=== PATIENT | male | born 1960 | race Caucasian/White ===

== ENCOUNTER 2020-07-07 10:48 | Emergency (ER) | payer BC ==
[~2020-07-07] VITALS: Ht 177.8 cm; Wt 127.0 kg
[~2020-07-07 10:48] MED LIST: ANTIVERT12.5 MG PO; CYCLOBENZAPRINE5 MG PO; HYDROCHLOROTH12.5 MG PO; HYDROCORTISONE10 MG PO; LEVOTHYROXINE50 MCG PO; METFORMIN HCL1000 MG PO; NORCO 10-325 T1 EACH PO; NORCO 5-325 TA1 EACH PO; SIMVASTATIN20 MG PO; TESTOSTERO200 MG/1 M IM; VITAMIN D250000 UNIT PO
[2020-07-07] MEDS ORDERED: VITAMIN D250 MC1 PO (10:55)
--- NOTE | 2020-07-07 19:49 | EKG ---
[facility] [address] [facility] [place] [address] Signed Normal sinus rhythm Left bundle branch block Abnormal ECG When compared with ECG of 03-JUN-2016 06:59, Left bundle branch block is now present Confirmed by VIDAL NG MD ([id number]) on 07/07/2020 7:48:47 PM Electronically Signed By: VIDAL NG MD 07/07/20 194 PATIENT NAME: HAILEY PRITCHARD Electrocardiogram DATE OF : 56 PHYSICIAN: VIDAL NG MD REPORT #: [id number] REPORT IS CONFIDENTIAL AND NOT TO BE RELEASED WITHOUT AUTHORIZATION
== END 2020-07-07 13:53 | disposition home or self-care (01) ==
LOC: ED 10:48
DX: R07.89 Other chest pain (principal); E11.9 Type 2 diabetes mellitus without complications; E03.9 Hypothyroidism, unspecified; I10 Essential (primary) hypertension; E78.5 Hyperlipidemia, unspecified; Z79.899 Other long term (current) drug therapy; Z79.84 Long term (current) use of oral hypoglycemic drugs
CPT/HCPCS: 71045; 80053; 83690; 83735; 84484; 85025; 93005; 93010; 99285-25

== ENCOUNTER 2021-08-12 09:07 | Emergency (ER) | payer OTHER, BC ==
[~2021-08-12] VITALS: Ht 177.8 cm; Wt 133.0 kg
[~2021-08-12 09:07] MED LIST changes: +VITAMIN D250 MC1 PO
--- OUTSIDE RECORDS SUMMARY | 2021-08-12 09:16 | XMS ---
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 Jayme has no Care Guidelines for this patient. Janice VISIT COUNT (12 MO.) 1 YEN Buck TOTAL 1 NOTE: Visits indicate total known visits. ED/C VISIT TRACKING (12 MO.) 08/12/2021 09:08 YEN Pedraza OR TYPE: Emergency COMPLAINT: - R MIDDLE FINGER INJURY INPATIENT VISIT TRACKING (12 MO.) No inpatient visits to display in this time frame [email or web address]
== END 2021-08-12 10:20 | disposition home or self-care (01) ==
LOC: ED 09:07
DX: S67.192A Crushing injury of right middle finger, initial encounter (principal); W22.8XXA Striking against or struck by other objects, initial encounter; E11.9 Type 2 diabetes mellitus without complications; E03.9 Hypothyroidism, unspecified; Z79.899 Other long term (current) drug therapy; Z79.84 Long term (current) use of oral hypoglycemic drugs
CPT/HCPCS: 73140; 99283-25

== ENCOUNTER 2023-03-31 08:02 | Emergency (ER) | payer BC ==
[~2023-03-31] VITALS: Ht 177.8 cm; Wt 131.5 kg
[2023-03-31] MEDS ORDERED: LISINOPRIL20 MG PO (10:19)
[2023-03-31] MEDS ORDERED: METFORMIN HCL500 MG PO (10:19)
[2023-03-31] MEDS ORDERED: ONDANSETRON ODT8 MG PO (10:20)
[2023-03-31] MEDS ORDERED: MECLIZINE HCL25 MG PO (10:20)
[2023-03-31 10:35] VITALS: BP 188/74
--- NOTE | 2023-03-31 14:28 | EKG ---
[facility] [address] [facility] [place] [address] Signed Sinus bradycardia with sinus arrhythmia Nonspecific T wave abnormality Abnormal ECG When compared with ECG of 07-JUL-2020 11:49, Vent. rate has decreased BY 37 BPM Left bundle branch block is no longer present Confirmed by PEARL POLANCO MD ([id number]) on 03/31/2023 2:28:03 PM Electronically Signed By: PEARL POLANCO 03/31/23 1428 PATIENT NAME: HAILEY PRITCHARD Electrocardiogram DATE OF : 56 PHYSICIAN: PEARL POLANCO REPORT #: [id number] REPORT IS CONFIDENTIAL AND NOT TO BE RELEASED WITHOUT AUTHORIZATION
== END 2023-03-31 10:52 | disposition home or self-care (01) ==
LOC: ED 08:02
DX: H81.399 Other peripheral vertigo, unspecified ear (principal); E11.65 Type 2 diabetes mellitus with hyperglycemia; I10 Essential (primary) hypertension; E03.9 Hypothyroidism, unspecified; Z79.899 Other long term (current) drug therapy; Z79.84 Long term (current) use of oral hypoglycemic drugs
CPT/HCPCS: 36415; 70450; 80053; 81001; 84484; 85025; 93005; 93010; 96361; 96374; 96375; 99284 25; J1200; J2405; J7030

== ENCOUNTER 2024-01-05 14:39 | Emergency (ER) | payer BC, MEDICARE ==
[~2024-01-05] VITALS: Ht 177.8 cm; Wt 128.3 kg
[~2024-01-05 14:39] MED LIST changes: +LISINOPRIL20 MG PO; +MECLIZINE HCL25 MG PO; +METFORMIN HCL500 MG PO; +ONDANSETRON ODT8 MG PO
[2024-01-05] MEDS ORDERED: ROSUVASTATIN CA40 MG PO (15:05)
[2024-01-05] MEDS ORDERED: OMEPRAZOLE20 MG PO (15:06)
[2024-01-05] MEDS ORDERED: PIOGLITAZONE HC15 MG PO (15:06)
[2024-01-05] MEDS ORDERED: BENZONATATE 100 MG CAP PO ONE (15:45)
[2024-01-05 15:55] LABS: INFLUENZA B NAA NEGATIVE (NEGATIVE); RESPIRATORY SYNCYTIAL VIR NAA NEGATIVE (NEGATIVE)
[2024-01-05 16:38] LABS: BASOPHILS 0.4 % (0-2); EOSINOPHILS 2.8 % (0-6); HEMATOCRIT 32.1 % (35.0-50.0); HEMOGLOBIN 10.7 g/dL (12.0-18.0); MCH 28.8 (27-36); MCHC 33.2 g/dl (30-36); MCV 86.6 fl (81-99); MONOCYTES 6.8 % (0-12); PLATELET COUNT 268 K/uL (140-440); RBC 3.71 M/ul (4.3-5.7); RDW 13.9 (10.5-15.0)
[2024-01-05 16:59] LABS: ALBUMIN 3.5 g/dL (3.4-5.0); ALBUMIN/GLOBULIN RATIO 0.85 (1.1-2.4); BILIRUBIN, TOTAL 0.3 ng/dL (0.2-1.0); BUN/CREATININE RATIO 17.96 (6.0-28.6); CALCIUM 8.5 mg/dL (8.5-10.1); CREATININE, SERUM 1.28 mg/dL (0.70-1.30); PROTEIN, TOTAL 7.6 g/dL (6.4-8.2)
[2024-01-05] MEDS ORDERED: BENZONATATE100 MG PO (17:49)
[2024-01-05 17:59] VITALS: BP 168/81
== END 2024-01-05 18:00 | disposition home or self-care (01) ==
LOC: ED 14:39
PROVIDERS: Emergency Medicine
DX: J06.9 Acute upper respiratory infection, unspecified (principal); E11.9 Type 2 diabetes mellitus without complications; E03.9 Hypothyroidism, unspecified; I10 Essential (primary) hypertension; E78.5 Hyperlipidemia, unspecified; Z79.84 Long term (current) use of oral hypoglycemic drugs; Z79.890 Hormone replacement therapy; Z79.899 Other long term (current) drug therapy
CPT/HCPCS: 36415; 71045; 80053; 83880; 85025; 87502; U0002

== ENCOUNTER 2024-11-08 09:47 | Day surgery (SDC) | payer BC, MEDICARE ==
[2024-11-01 15:36] VITALS: BP 123/70
[~2024-11-08] VITALS: Ht 177.8 cm; Wt 122.7 kg
[~2024-11-08 09:47] MED LIST changes: +BAYER CHEWABLE81 MG PO; +BENZONATATE100 MG PO; +CEFAZOLIN SODIUM 3 GM/30 ML SYR IV SCH; +IBLOOD GLUCOSE TEST STRIP 1 EA TEST VI PRN; +JARDIANCE10 MG PO; +LACTATED RINGER'S 1,000 ML IV SCH; +LIDOCAINE HCL 1% 5 ML SDV INJ ONE; +MIDAZOLAM HCL 5 MG/5 ML VIAL IV PRN; +OMEPRAZOLE20 MG PO; +PIOGLITAZONE HC15 MG PO; +ROSUVASTATIN CA40 MG PO; +fentaNYL citrate 100 MCG/2 ML VIAL IV PRN; +methylPREDNISolone SOD SUCC 125 MG/2 ML VIAL IV SCH
[2024-11-08 10:03] VITALS: BP 136/72
[2024-11-08] MEDS ORDERED: METOPROLOL SUCC25 MG PO (10:06)
[2024-11-08] MEDS ORDERED: LIDOCAINE HCL 2% 5 ML SDV ONE (11:11)
[2024-11-08] MEDS ORDERED: propofoL 200 MG/20 ML VIAL ONE ×2 (11:11→11:47)
[2024-11-08 12:20] VITALS: BP 139/84
--- NOTE | 2024-11-08 12:28 | NUR ---
11/08/24 1228 Priscilla Ervin 1159 PT ARRIVED IN PACU NON RESPONSIVE TO NOXIOUS STIMULI WITH OPA IN PLACE. LAYING ON L SIDE. ABD SOFT. 1208 PT REACTIVE. OPA REMOVED. PASSING FLATUS. 1220 SITTING UP IN BED ASKING TO GO HOME.
--- NOTE | 2024-11-08 13:17 | OR ---
[facility] [address] [place], [place] [address] Signed DATE OF OPERATION: 11/08/2024 SURGEON: John Gibson MD PREOPERATIVE DIAGNOSES: 1. Anemia. 2. Nausea, vomiting, diarrhea. POSTOPERATIVE DIAGNOSES: 1. Small hiatal hernia. 2. A 5 mm polyp at distal transverse colon. PROCEDURES: 1. Esophagogastroduodenoscopy with CLOtest and biopsies of the duodenum, pyloric bulb, and antrum. 2. Colonoscopy with hot biopsy. ESTIMATED BLOOD LOSS: None. INDICATIONS: Jasmeet is a 64-year-old gentleman, asked to see me for both upper and lower endoscopy. I have known Jasmeet in the remote past. He was found to be slightly anemic. Most recently, the hemoglobin is 11.7 and a mean cell volume is 87. He said he has intermittent intervals of nausea, vomiting, and diarrhea. He is known to have an Empty Sella Syndrome for many years. I helped to remove his gallbladder back in 2013. He went over to [facility] to have his cardiac ablation, and then later his pacemaker/defibrillator placed. He tells me there is no family history of colon cancer or polyps. No family history of inflammatory bowel disease. No one else in the family seems to be sick. In the office, I gave him pamphlets on both upper and lower endoscopy. He recalls the nature of the two tests. There is risk including, but not limited to gas bloating, crampy abdominal pain, bleeding, perforation requiring surgery, and missed diagnosis. We also reviewed the written instructions for the bowel prep line by line. It is the same bowel prep he took before. He also recalls the need for monitored anesthesia care given his Empty Sella syndrome along with his very full round face, heavy neck, chest and abdomen. He had expressed understanding and wished to proceed. He understands an adult person has to take him home afterwards. DESCRIPTION OF PROCEDURE: Jasmeet was taken into our endoscopy suite and placed in the supine semi-recumbent Electronically Signed By: JOHN GIBSON MD 11/08/24 1317 PATIENT NAME: JASMEET PRITCHARD OPERATIVE REPORT DATE OF : 56 REPORT #: [id number] PHYSICIAN: JOHN GIBSON MD PCP: ABBIE SOTO PAC REPORT IS CONFIDENTIAL AND NOT TO BE RELEASED WITHOUT AUTHORIZATION [facility] [address] [place], [place] [address] Signed position. A bite block was utilized for the case. The adult gastroscope was introduced and advanced under direct visualization of the camera. He was given monitored anesthesia care, propofol infusion per our nurse asbestos removal worker. The duodenum and pyloric channel were unremarkable. Because the history of diarrhea, we went ahead and took a biopsy of the duodenum as well as pyloric channel. His entire stomach was unremarkable. We went ahead and took a biopsy of the antrum for pathologic review as well as CLOtest, there were no ulcerations. Upon retroflexion of scope, he appears to have just a very small hiatal hernia. The scope was withdrawn up through the area of the GE junction, which was compliant without stricture. There was no gastric or esophageal varices. He has essentially no disruption to his Z-line. There was no Smith mucosa. There was no distal esophagitis. The middle and upper esophagus were unremarkable. After this, the gas was suctioned out, the gastroscope removed. Jasmeet tolerated the upper endoscopy quite well. Jasmeet was then rotated into the left lateral decubitus position. He was maintained on propofol infusion per nurse asbestos removal worker. A digital rectal exam was performed. This was unremarkable. No external hemorrhoids. Good sphincter tone. No masses. The adult colonoscope was introduced and advanced all around into the cecum under direct visualization of the camera. It took just a little abdominal compression to get the scope into the cecum itself. His prep was quite good. We could easily see the appendiceal orifice and ileocecal valve. Back in the distal transverse colon, he had a 5 mm polyp easily removed with the help of hot biopsy forceps. There was no diverticulosis. The rectum was unremarkable. Upon retroflexion of scope, there was no additional pathology noted above the anal canal. After this, the gas was suctioned out. Colonoscope removed. Jasmeet tolerated the lower endoscopy quite well. RECOMMENDATIONS: I will see Jasmeet back in my office in 7 to 14 days to review his results. John Gibson MD ALB/MODL /[id number] cc: John Gibson MD Electronically Signed By: JOHN GIBSON MD 11/08/24 1317 PATIENT NAME: JASMEET PRITCHARD OPERATIVE REPORT DATE OF : 56 REPORT #: [id number] PHYSICIAN: JOHN GIBSON MD PCP: ABBIE SOTO PAC REPORT IS CONFIDENTIAL AND NOT TO BE RELEASED WITHOUT AUTHORIZATION [address] [address], [place] [address] Nguyễn Soto PA-C Patient Chart Copies: JOHN GIBSON MD, ERIKA PAC ~ Electronically Signed By: JOHN GIBSON MD 11/08/24 1317 PATIENT NAME: JASMEET PRITCHARD OPERATIVE REPORT DATE OF : 56 REPORT #: [id number] PHYSICIAN: JOHN GIBSON MD PCP: ABBIE SOTO REPORT IS CONFIDENTIAL AND NOT TO BE RELEASED WITHOUT AUTHORIZATION
--- NOTE | 2024-11-10 11:03 | PATH ---
[facility] [address] [place], [place] [address] Signed SPECIMEN(S): A DUODENAL BIOPSY SPECIMEN(S): B DUODENAL BULB BIOPSY SPECIMEN(S): C ANTRUM/PYLORUS BIOPSY SPECIMEN(S): D DISTAL TRANSVERSE COLON POLYP SPECIMEN SOURCE: A. DUODENAL BIOPSY B. DUODENAL BULB BIOPSY C. ANTRUM/PYLORUS BIOPSY D. DISTAL TRANSVERSE COLON POLYP CLINICAL HISTORY: Nausea, vomiting, diarrhea, anemia, hiatal hernia, colon polyp FINAL PATHOLOGIC DIAGNOSIS: A. Duodenum, biopsy: - Duodenal mucosa with no significant pathologic changes B. Duodenum, bulb, biopsy: - Duodenal mucosa with no significant pathologic changes C. Stomach, antrum/pylorus, biopsy: - Gastric antral mucosa with no significant pathologic changes - Negative for Helicobacter pylori with HE stains D. Colon, distal transverse, polypectomy: - Tubular adenoma BRP MICROSCOPIC EXAMINATION: Histologic sections of all submitted blocks are examined by light microscopy. These findings, together with the gross examination, support the pathologic diagnosis. GROSS DESCRIPTION: A. The specimen, labeled and designated "Shaquille Baxter., duodenum (NOS) biopsy per requisition," is received in formalin and consists of a single quintero tissue fragment the 0.4 cm in greatest dimension. The specimen is entirely submitted in cassette A1. B. The specimen, labeled and designated "Shaquille Baxter., duodenum (bulb) biopsy per requisition," is received in formalin and consists of a single uqintero tissue fragment that is 0.4 cm in greatest dimension. The specimen is entirely submitted in cassette B1. C. The specimen, labeled and designated "Shaquille Baxter., antrum/pylorus biopsy per PATIENT NAME: HAILEY BAXTER PATHOLOGY DATE OF : 56 REPORT #: [id number] PHYSICIAN: CAROLINA ACOSTA PCP: ABBIE MALDONADO PAC REPORT IS CONFIDENTIAL AND NOT TO BE RELEASED WITHOUT AUTHORIZATION [facility] [address] [place], [place] [address] Signed requisition," is received in formalin and consists of a single quintero tissue fragment that is 0.3 cm in greatest dimension. The specimen is entirely submitted in cassette C1. D. The specimen, labeled and designated "Piyush Baxter, distal transverse polypectomy per requisition," is received in formalin and consists of a single quintero tissue fragment that is 0.3 cm in greatest dimension. The specimen is entirely submitted in cassette D1. AA (under the direct supervision of a pathologist) The Gross Description was prepared using a voice recognition system. The report was reviewed for accuracy; however, sound-alike word errors, addition and/or deletions may occur. If there is any question about this report, please contact Client Services. ADDITIONAL NOTES: Immunohistochemical and/or in situ hybridization studies if performed in this case included appropriate positive controls that reacted as expected. This test was developed and its performance characteristics determined by [facility]. It has not been cleared or approved by the U.S. Food and Drug Administration. The FDA has determined that such clearance or approval is not necessary. This test is used for clinical purposes. It should not be regarded as investigational or for research. [facility] is certified under the Clinical Laboratory Improvement Amendments of 1988 (CLIA) as qualified to perform high complexity clinical laboratory testing. Technical component was performed by [facility], [address] [place] [id number] (CLIA# [id number]). Professional interpretation was performed by [facility], [address] [place] [address] (CLIA#: [id number]). Diagnostician: Adán Lucero MD Pathologist Electronically Signed 11/10/2024 Copies: ~ PATIENT NAME: HAILEY BAXTER PATHOLOGY DATE OF : 56 REPORT #: [id number] PHYSICIAN: CAROLINA ACOSTA PCP: ABBIE MALDONADO PAC REPORT IS CONFIDENTIAL AND NOT TO BE RELEASED WITHOUT AUTHORIZATION
== END 2024-11-08 12:34 | disposition home or self-care (01) ==
LOC: DS 09:47
PROVIDERS: ATTEND Colon & Rectal Surgery
PROC: 0DBL8ZX Excision of Transverse Colon, Via Natural or Artificial Opening Endoscopic, Diagnostic (ICD-10-PCS; 2024-11-08)
PROC: 0DB98ZX Excision of Duodenum, Via Natural or Artificial Opening Endoscopic, Diagnostic (ICD-10-PCS; principal; 2024-11-08 12:10)
PROC: 0DB78ZX Excision of Stomach, Pylorus, Via Natural or Artificial Opening Endoscopic, Diagnostic (ICD-10-PCS; 2024-11-08 12:10)
DX: R19.7 Diarrhea, unspecified (principal); R11.2 Nausea with vomiting, unspecified; D64.9 Anemia, unspecified; D12.3 Benign neoplasm of transverse colon; K44.9 Diaphragmatic hernia without obstruction or gangrene; E23.6 Other disorders of pituitary gland; E11.9 Type 2 diabetes mellitus without complications; I10 Essential (primary) hypertension; E03.9 Hypothyroidism, unspecified; E66.9 Obesity, unspecified; Z68.41 Body mass index [BMI] 40.0-44.9, adult; Z79.84 Long term (current) use of oral hypoglycemic drugs; Z79.890 Hormone replacement therapy; Z79.899 Other long term (current) drug therapy; Z95.0 Presence of cardiac pacemaker; Z90.49 Acquired absence of other specified parts of digestive tract
CPT/HCPCS: 00813; 36415; 87077; 88305; J0690; J2003; J2704; J7121

== ENCOUNTER 2025-07-29 21:48 | Emergency (ER) | payer MEDICARE ==
[~2025-07-29] VITALS: Ht 177.8 cm; Wt 127.9 kg
--- OUTSIDE RECORDS SUMMARY | ~2025-07-29 | XMS | Continuity of Care Document ---
Demographics + + + | Address | [address] | | | [place] [address] | + + + | Preferred Language | Unknown | + + + | Marital Status | | + + + | Temple Affiliation | Unknown | + + + | Race | White | + + + | Ethnic Group | Not or | + + + Author + + + | Author | [place] | + + + | Organization | [facility] | + + + | Address | [address] | | | [place] [address] | + + + | Phone | | + + + Care Team Providers + + + + | Care Broth Setter Name | Role | Phone | + + + + Unavailable | Unavailable | + + + + Allergies No information. Encounters No information. Functional Status No information. Immunizations No information. Medications + + + + | date | description | facility | + + + + | (no date) | Ergocalciferol (Vitamin | [facility] | | | D2) | [facility] | + + + + | (no date) | ERGOCALCIFEROL (VITAMIN | [facility] | | | D2) | [facility] | + + + + | (no date) | EMPAGLIFLOZIN | [facility] | | | | [facility] | + + + + | (no date) | HYDROCORTISONE | [facility] | | | | [facility] | + + + + | (no date) | OMEPRAZOLE | [facility] | | | | [facility] | + + + + | (no date) | ONDANSETRON | [facility] | | | | [facility] | + + + + | (no date) | SIMVASTATIN | [facility] | | | | [facility] | + + + + | (no date) | HYDROCHLOROTHIAZIDE | [facility] | | | | [facility] | + + + + | (no date) | ASPIRIN | [facility] | | | | [facility] | + + + + | (no date) | CYCLOBENZAPRINE HCL | [facility] | | | | [facility] | + + + + | (no date) | TESTOSTERONE CYPIONATE | [facility] | | | | [facility] | + + + + | (no date) | HYDROCODONE/APAP | [facility] | | | (10-325MG) | [facility] | + + + + | (no date) | Rosuvastatin Calcium | [facility] | | | | [facility] | + + + + | (no date) | METFORMIN HCL | [facility] | | | | [facility] | + + + + | (no date) | METOPROLOL SUCCINATE | [facility] | | | | [facility] | + + + + | (no date) | LEVOTHYROXINE SODIUM | [facility] | | | | [facility] | + + + + Problems No information. Procedures No information. Results/Labs No information. Social History +--------+ + + | date | description | facility | +--------+ + + Vital Signs No information."
[~2025-07-29 21:48] MED LIST changes: -CEFAZOLIN SODIUM 3 GM/30 ML SYR IV SCH; -IBLOOD GLUCOSE TEST STRIP 1 EA TEST VI PRN; -LACTATED RINGER'S 1,000 ML IV SCH; -LIDOCAINE HCL 1% 5 ML SDV INJ ONE; +METOPROLOL SUCC25 MG PO; -MIDAZOLAM HCL 5 MG/5 ML VIAL IV PRN; -fentaNYL citrate 100 MCG/2 ML VIAL IV PRN; -methylPREDNISolone SOD SUCC 125 MG/2 ML VIAL IV SCH
[2025-07-29] MEDS ORDERED: ASPIRIN 81 MG CHEW PO ONE (22:00)
[2025-07-29] MEDS ORDERED: NITROGLYCERIN 0.4 MG SUBL SL PRN (22:00)
[2025-07-29] MEDS ORDERED: ALDACTONE25 MG PO (22:27)
[2025-07-29] MEDS ORDERED: MORPHINE SULFATE 4 MG/ML VIAL IV ONE (22:30)
[2025-07-29 22:31] LABS: BASOPHILS 0.2 % (0.2-1.2); EOSINOPHILS 3.9 % (0.8-7.0); LYMPHOCYTES 15.9 % (21.8-53.1); MCH 28.7 PG (25.7-32.2); MCHC 33.1 g/dL (32.3-36.5); MCV 86.6 fL (79.0-92.2); MONOCYTES 6.5 % (5.3-12.2); NEUTROPHILS 73.2 % (34.0-67.9); RBC 3.35 M/uL (4.63-6.08)
[2025-07-29 22:44] LABS: ALT (SGPT) 27.0 U/L (14-59); AST (SGOT) 16.0 U/L (15-37); GLOMERULAR FILTRATION RATE,EST 57.0 mL/min (>60); PROTEIN, TOTAL 7.1 g/dL (6.4-8.2); UREA NITROGEN 28.0 mg/dL (7-18)
[2025-07-29] MEDS ORDERED: KETOROLAC TROMETHAMINE 30 MG/ML VIAL IV ONE (23:15)
[2025-07-30] MEDS ORDERED: MAGNESIUM SULFATE 2 GM/50 ML BAG IV ONE (00:15)
[2025-07-30] MEDS ORDERED: MAGNESIUM SULFATE 50 ML IV ONE (00:17)
[2025-07-30 03:15] VITALS: BP 134/64
--- NOTE | 2025-07-30 11:20 | EKG ---
[facility] [address] [facility] [place] [address] Signed AV dual-paced rhythm with frequent atrial-paced complexes Abnormal ECG When compared with ECG of 29-JUL-2025 21:52, (Unconfirmed) Vent. rate has decreased BY 11 BPM Confirmed by Dg Nassar DO ([id number]) on 07/30/2025 11:20:22 AM Electronically Signed By: DG NASSAR DO 07/30/25 1120 PATIENT NAME: HAILEY PRITCHARD Electrocardiogram DATE OF : 56 PHYSICIAN: DG NASSAR DO REPORT #: [id number] REPORT IS CONFIDENTIAL AND NOT TO BE RELEASED WITHOUT AUTHORIZATION
--- NOTE | 2025-07-30 11:20 | EKG ---
[facility] [address] [facility] [place] [address] Signed AV dual-paced rhythm Abnormal ECG When compared with ECG of 01-NOV-2024 15:45, Vent. rate has increased BY 11 BPM Confirmed by Dg Nassar DO ([id number]) on 07/30/2025 11:20:18 AM Electronically Signed By: DG NASSAR DO 07/30/25 1120 PATIENT NAME: HAILEY PRITCHARD Electrocardiogram DATE OF : 56 PHYSICIAN: DG NASSAR DO REPORT #: [id number] REPORT IS CONFIDENTIAL AND NOT TO BE RELEASED WITHOUT AUTHORIZATION
--- NOTE | 2025-07-30 11:20 | EKG ---
[facility] [address] [facility] [place], [place] [address] Signed AV dual-paced rhythm with frequent atrial-paced complexes Abnormal ECG When compared with ECG of 29-JUL-2025 22:19, (Unconfirmed) No significant change was found Confirmed by Dg Nassar DO ([id number]) on 07/30/2025 11:20:46 AM Electronically Signed By: DG NASSAR DO 07/30/25 1120 PATIENT NAME: HAILEY PRITCHARD Electrocardiogram DATE OF : 56 PHYSICIAN: DG NASSAR DO REPORT #: [id number] REPORT IS CONFIDENTIAL AND NOT TO BE RELEASED WITHOUT AUTHORIZATION
--- NOTE | 2025-07-30 11:21 | EKG ---
[facility] [address] [facility] [place] [address] Signed Atrial-paced rhythm Left axis deviation Nonspecific intraventricular block Inferior infarct (cited on or before 30-JUL-2025) Anterolateral infarct (cited on or before 30-JUL-2025) Abnormal ECG When compared with ECG of 30-JUL-2025 01:26, (Unconfirmed) No significant change was found Confirmed by Dg Nassar DO ([id number]) on 07/30/2025 11:20:53 AM Electronically Signed By: DG NASSAR DO 07/30/25 112 PATIENT NAME: HAILEY PRITCHARD Electrocardiogram DATE OF : 56 PHYSICIAN: DG NASSAR DO REPORT #: [id number] REPORT IS CONFIDENTIAL AND NOT TO BE RELEASED WITHOUT AUTHORIZATION
== END 2025-07-30 03:16 | disposition home or self-care (01) ==
LOC: ED 21:48
PROVIDERS: Internal Medicine
DX: R07.9 Chest pain, unspecified (principal); E11.9 Type 2 diabetes mellitus without complications; I50.9 Heart failure, unspecified; Z79.899 Other long term (current) drug therapy
CPT/HCPCS: 36415; 71045; 80053; 83690; 83735; 83880; 84484; 85025; 85379; 93005; 93010; 96365; 96375; 99285-25; A9270; J1885; J2270; J3475